=== PATIENT | male | born 1970 | race Caucasian/White ===

== ENCOUNTER 2019-12-22 10:21 | Emergency (ER) | payer SELFPAY ==
[2019-12-22] MEDS ORDERED: CYCLOBENZAPRINE 10 MG TAB ONE (11:13)
[2019-12-22] MEDS ORDERED: HYDROCODONE/APAP 10/325 TAB ONE (11:13)
--- NOTE | 2019-12-22 11:35 | RAD REPORT ---
EXAM DESCRIPTION: RAD - Shoulder Right 2 View - 12/22/2019 11:21 am CLINICAL HISTORY: Right shoulder pain FINDINGS: No fracture or dislocation is seen.
--- NOTE | 2019-12-22 11:36 | RAD REPORT ---
EXAM DESCRIPTION: RAD - Ankle Right 3 View - 12/22/2019 11:21 am CLINICAL HISTORY: Right ankle pain FINDINGS: No fracture or dislocation is seen.
--- NOTE | 2019-12-22 11:38 | RAD REPORT ---
EXAM DESCRIPTION: RAD -Hand Left 3 View - 12/22/2019 11:21 am CLINICAL HISTORY: Left hand pain status post injury FINDINGS: No fracture or dislocation is seen.
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
[2019-12-22 12:50] VITALS: TEMP 98.5; O2SAT 99
[2019-12-22 12:53] VITALS: BP 134/87
== END 2019-12-22 12:45 | disposition home or self-care (01) ==
LOC: ER 10:21
DX: S13.9XXA Sprain of joints and ligaments of unspecified parts of neck, initial encounter (principal); S90.511A Abrasion, right ankle, initial encounter; V49.40XA Driver injured in collision with unspecified motor vehicles in traffic accident, initial encounter; I10 Essential (primary) hypertension; F41.9 Anxiety disorder, unspecified
CPT/HCPCS: 99284